=== PATIENT | female | born 1985 | race Caucasian/White ===

== ENCOUNTER 2020-05-20 10:56 | Emergency (ER) | payer BC ==
[~2020-05-20] VITALS: Ht 165.1 cm; Wt 78.0 kg
[2020-05-20 11:06] VITALS: BP 150/88
--- NOTE | 2020-05-20 11:43 | Emergency Room Report ---
History of Present Illness General Chief Complaint: Skin Rash/Abscess Source: Patient Present Illness HPI This patient states that 2 days ago she noted a stinger in her right lower arm. She states that it looked like a bee stinger. She had never been stung by a bee in the past. She states over the past 2 days the redness and swelling of her arm has progressed and worsened. She states it is also blistered and become very itchy. She denies pain. She states it is uncomfortable because it is swollen. She denies recent illness. She denies fever chills. She denies nausea or vomiting. She has no other complaints. Allergies: Coded Allergies: No Known Allergies (Unverified , 05/20/20) COVID-19 Screening Contact w/high risk pt: No Experienced COVID-19 symptoms?: No COVID-19 Testing performed HOME HEALTH LPN: No Patient History Past Medical History: none, see triage record Social History: Denies: smoking, alcohol use, drug use Last Menstrual Period: 04/26/20 Now: No Reviewed Nursing Documentation: PMH: Agreed; PSxH: Agreed Nursing Documentation-PMH Past Medical History: No Stated History Review of Systems All Other Systems: negative except mentioned in HPI Physical Exam Vital Signs Date Time Temp Pulse Resp B/P (MAP) Pulse Ox O2 Delivery O2 Flow Rate FiO2 05/20/20 11:02 98.8 86 17 158/95 (116) 98 Room Air Sp02 EP Interpretation: reviewed, normal General Appearance: no apparent distress, alert, GCS 15, non-toxic Head: normocephalic, atraumatic Eyes: bilateral eye normal inspection ENT: hearing grossly normal, no angioedema, normal voice Neck: full range of motion, supple/symm/no masses Respiratory: no respiratory distress, no retraction, no accessory muscle use, speaking full sentences Rectal: deferred Musculoskeletal: back normal, normal range of motion, gait/station normal, non- tender Neurologic: alert, motor strength/tone normal, oriented x3, sensory intact, responsive, speech normal Psychiatric: judgement/insight normal, memory normal, mood/affect normal, no suicidal/homicidal ideation Skin: other - R. arm with clear erythema and mild edema covering the R. medial and anterior forearm extending to the mid upper arm. mild warmth. Central puncture site with surrounding blistering. 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 This appears to be all allergic and wheel-like. There is also blistering. This is almost covering the entire aspect of her medial and anterior arm. Given the severity of the reaction, I will place the patient on both oral and topical steroids. Patient was also instructed to take over-the- counter Benadryl. Patient is given close return precautions and follow-up instructions. Last Vital Signs Date Time Temp Pulse Resp B/P (MAP) Pulse Ox O2 Delivery O2 Flow Rate FiO2 05/20/20 11:06 98.7 88 17 150/88 98 Room Air Status: improved Disposition: HOME, SELF-CARE Condition: Improved Adele Tubbs DO May 20, 2020 11:42
[2020-05-20] MEDS ORDERED: PREDNISONE20 MG ORAL (11:45)
[2020-05-20] MEDS ORDERED: TRIAMCINOLONE A15 G1 TP (11:45)
== END 2020-05-20 11:51 | disposition home or self-care (01) ==
LOC: EMR 11:45
DX: T63.421A Toxic effect of venom of ants, accidental (unintentional), initial encounter (principal); Y92.9 Unspecified place or not applicable
CPT/HCPCS: 99282